=== PATIENT | female | born 1975 | race Caucasian/White ===

== ENCOUNTER → 2016-11-13 | Outpatient (CLI) | payer OTHER ==
[~2016-11-13] MED LIST: PRENTAB26 PO
[2016-11-13 11:00] LABS: BLOOD UREA NITROGEN 14 mg/dl (7-18); BUN/CREATININE RATIO 18.8 (10-20); CALCIUM 9.4 mg/dl (8.5-10.1); CARBON DIOXIDE 30 mmol/L (21-32); CHLORIDE 102 mmol/L (98-107); CREATININE 0.76 mg/dl (0.60-1.20); GLUCOSE 99 mg/dl (70-99); POTASSIUM 4.2 mmol/L (3.5-5.1); SODIUM 138 mmol/L (136-145)
== END | disposition home or self-care (01) ==
LOC: C.LAB1850 09:48
PROVIDERS: ATTEND Family Medicine
DX: I10 Essential (primary) hypertension (principal)

== ENCOUNTER → 2016-12-17 | Outpatient (CLI) | payer OTHER ==
--- NOTE | 2016-12-18 12:47 | MAMMOGRAPHY REPORT ---
BILATERAL FIRST EVER DIGITAL SCREENING MAMMOGRAM TOMOSYNTHESIS WITH CAD: 12/17/2016 CLINICAL HISTORY: Routine screening. Baseline exam. The patient reported to the technologist a palp able lump in the right breast. TECHNIQUE: Breast tomosynthesis in addition to standard 2D mammography was performed. Current study was also evaluated with a Computer Aided Detection (CAD) system. Bilateral CC and MLO 2-D and tomosy nthesis images were obtained. COMPARISON: No prior exams were available for comparison. BREAST COMPOSITION: The tissue of both breasts is extremely dense, which lowers the sensitivity of m ammography. FINDINGS: A triangle marker irizarry the site of the palpable lump pointed out by the patient in the ri t inferior breast at approximately 6:00. There is nodularity seen in the region of the triangle ma rker on the tomosynthesis images, for which ultrasound is recommended for further evaluation. The re mainder of both breasts are negative, without suspicious masses, calcifications, or areas of architec tural distortion. IMPRESSION: ACR BI-RADS CATEGORY 0: INCOMPLETE EVALUATION: NEED ADDITIONAL IMAGING EVALUATION Nodularity within the right 6:00 breast in the region of a palpable lump pointed out by the patient, for which ultrasound is recommended for further evaluation. The patient will be called to schedule an appointment. Approximately 10% of breast cancers are not detected with mammography. A negative mammographic report should not delay biopsy if a clinically suggestive mass is present. Cherelle Deleon M.D. /:12/17/2016 15:17:27 Certified Scrum Master: Meena MARIE(Robby)(Wagner)(MARY CARMEN), [facility] letter sent: Addl Imaging 0 BI-RADS Code: ACR BI-RADS Category 0: Incomplete Evaluation: Need Additional Imaging Evaluation
== END | disposition home or self-care (01) ==
LOC: C.MAMM 14:34
PROVIDERS: ATTEND Family Medicine
DX: Z12.31 Encounter for screening mammogram for malignant neoplasm of breast (principal)

== ENCOUNTER → 2016-12-26 | Outpatient (CLI) | payer OTHER ==
--- NOTE | 2016-12-26 13:58 | MAMMOGRAPHY REPORT ---
ULTRASOUND OF RIGHT BREAST: 12/26/2016 CLINICAL HISTORY: The patient reports that her physician felt a palpable lump during a breast exam. She also reports that her physician felt an other possible lump. COMPARISON: Comparison is made to exam dated: 12/17/2016 mammogram - [facility]. TECHNIQUE: Real-time targeted ultrasound of the right breast was performed. FINDINGS: Real-time, high resolution targeted ultrasound was performed of the area of the palpable lump pointed out by the patient in the right breast at 6:00 approximately 3 cm from the nipple (note that some of the ultrasound images are mislabeled as 4:00 but are actually of 6:00). At the site of the palpable lump there is a focal area of mildly dilated ducts and a few anechoic benign cysts. This correspond s with the mammographic nodularity and is benign and compatible with fibrocystic changes/duct ectasia . No suspicious solid masses were evident in this region. Ultrasound was also performed of the area of the other possible lump felt by the patient's physician pointed out by the patient in the right 8 to 9:00 breast far laterally. No suspicious masses or other suspicious sonographic abnormalities ar e evident in this region. IMPRESSION: ACR BI-RADS CATEGORY 2: BENIGN Benign focal fibrocystic changes/duct ectasia at the site of the palpable lump and mammographic nodul arity in the right 6:00 breast. There is no sonographic evidence of malignancy. A 1 year screening mammogram is recommended. Also recommend clinical follow-up for the palpable right breast lump. The patient was verbally notified of the results. Cherelle Deleon M.D. /:12/26/2016 09:11:40 Case Assistant: Cherelle Deleon MD, [facility] letter sent: Normal 1/2 BI-RADS Code: ACR BI-RADS Category 2: Benign
== END | disposition home or self-care (01) ==
LOC: C.MAMM 08:41
PROVIDERS: ATTEND Family Medicine
DX: N63 Unspecified lump in breast (principal)

== ENCOUNTER → 2017-12-23 | Outpatient (CLI) | payer OTHER ==
--- NOTE | 2017-12-24 15:13 | MAMMOGRAPHY REPORT ---
BILATERAL DIGITAL SCREENING MAMMOGRAM TOMOSYNTHESIS WITH CAD: 12/23/2017 CLINICAL HISTORY: Routine screening. Patient has no complaints. TECHNIQUE: The study was acquired using full field digital technology and interpreted from soft copy. Breast tomosynthesis in addition to standard 2D mammography was performed. Current study was also ev aluated with a Computer Aided Detection (CAD) system. COMPARISON: Comparison is made to exams dated: 12/17/2016 mammogram and 12/26/2016 ultrasound - [facility]. BREAST COMPOSITION: The tissue of both breasts is extremely dense, which lowers the sensitivity of ma mmography. FINDINGS: No suspicious masses, calcifications, or areas of architectural distortion are noted in either breast . There has been no significant interval change compared to prior exams. IMPRESSION: ACR BI-RADS CATEGORY 1: NEGATIVE There is no mammographic evidence of malignancy. A 1 year screening mammogram is recommended.( [id number]) The patient will receive written notification of the results. Some breast cancers are not detected with mammography. A negative mammographic report should not ludmila y biopsy if a clinically suggestive mass is present. Cherelle Deleon M.D. ah/:12/23/2017 16:06:03 Drafter Marine: RT Frandy(Robby)(M), [facility] letter sent: Normal 1/2 BI-RADS Code: ACR BI-RADS Category 1: Negative
== END | disposition home or self-care (01) ==
LOC: C.MAMM 14:25
PROVIDERS: ATTEND Family Medicine
DX: Z12.31 Encounter for screening mammogram for malignant neoplasm of breast (principal)